=== PATIENT | male | born 2005 | race Caucasian/White ===

== ENCOUNTER 2024-03-25 15:45 | Emergency (ER) | payer OTHER, BC ==
[2024-03-25] MEDS: cefTRIAXone 1 GM in Sodium Chloride 0.9% 50 ML IV ONE (17:03)
== END 2024-03-25 18:12 | disposition home or self-care (01) ==
LOC: JP.ED 15:45
DX: J18.9 Pneumonia, unspecified organism (principal); Z86.16 Personal history of COVID-19; Z79.2 Long term (current) use of antibiotics
CPT/HCPCS: 96365; 99283; J0696; J3490